=== PATIENT | female | born 1965 | race Caucasian/White ===

== ENCOUNTER 2020-09-29 10:51 | Emergency (ER) | payer OTHER, SELFPAY ==
[2020-09-29 10:59] VITALS: BP 149/86; PULSE 65; RESP 16; TEMP 36.9; O2SAT 99
--- NOTE | 2020-09-29 11:25 | ED.HEATRA ---
HPI - Head Injury General Chief complaint: Trauma Stated complaint: RIGHTSIDE PAIN History of Present Illness HPI Narrative: This is a 55 year old female that comes in due to a syncopal episode yesterday and she does not remember passing out from a bar stool all she remember waking up on the floor from an chair she got up and went to bed. Patient states she has hypertension but no diabetes a pack a day smoker. What brought her in was she is having chest pain on the right side that radiates to her back. Patient states she has some shortness of breath and the chest pain continues to get worse. Right sided parietal pain from her fall yesterday no brusing noted. Related Data Home Medications Medication Instructions Recorded Confirmed albuterol sulfate INHALATION 09/29/20 bupropion HCl mg PO 09/29/20 nebivolol [Bystolic] mg 09/29/20 [id number] tablet PO 09/29/20 Allergies Allergy/AdvReac Type Severity Reaction Status Date / Time No Known Allergies Allergy Unverified 03/31/18 11:52 Review of Systems Review of Systems: Narrative: CONSTITUTIONAL: Denies fever, chills, or sweats. EYES: Denies visual changes, redness, or discharge. ENT: Denies rhinorrhea, congestion, sore throat, or otalgia. CARDIOVASCULAR:Reports chest pain, palpitations, or edema. RESPIRATORY: Denies cough or dyspnea. GASTROINTESTINAL: Denies abdominal pain, nausea, vomiting, or diarrhea. GENITOURINARY: Denies dysuria or hematuria. SKIN:[Denies rash or itching. MUSCULOSKELETAL:Denies back pain, joint pain, or myalgia. Reports right sided parietal pain NEUROLOGIC: Denies headache, numbness, or weakness. PSYCHIATRIC:Denies anxiety or depression PMFSH Comments At time as signature, I have reviewed and agree with nursing past medical, social, surgical and family history. Please see nursing chart for further information. There is no relevant family history pertinent to the presenting complaint. Exam Narrative: Exam Narrative: GENERAL:Well-appearing, well-nourished, and in no acute distress. HEAD:Normocephalic, atraumatic. EYES: PERRLA and EOMI. ENT: Nares clear, no rhinorrhea or epistaxis. Mucous membranes moist. NECK: Supple. CHEST: Clear to auscultation. No respiratory distress. right sided chest pain that goes to her back HEART: Regular rate and rhythm. normal peripheral pulses. ABDOMEN: Soft, nontender, nondistended, normal active bowel sounds. EXTREMITIES: Normal range of motion. No edema. Pariatel pain from fall yesterday. SKIN: Warm, dry, no rash. NEURO: No focal deficits. Alert and oriented x3. Course Vital Signs Vital signs: Vital Signs Temperature 98.5 F 09/29/20 10:59 Pulse Rate 65 09/29/20 10:59 Respiratory Rate 16 09/29/20 10:59 Blood Pressure 149/86 H 09/29/20 10:59 Pulse Oximetry 99 09/29/20 10:59 Temperature 98.5 F 09/29/20 10:59 Pulse Rate 65 09/29/20 10:59 Respiratory Rate 16 09/29/20 10:59 Blood Pressure 149/86 H 09/29/20 10:59 Pulse Oximetry 99 09/29/20 10:59 Discharge Plan Discharge Clinical Impression: Syncope and collapse Chest pain Qualifiers: Chest pain type: chest pain on breathing Qualified Code(s): R07.1 - Chest pain on breathing Patient Disposition: Acute Care Hospital Condition: Stable Instructions: Chest Pain (ED), Syncope (ED), Chest Wall Pain (ED) Additional Instructions: Transferred to [facility] spoke with Dr. Carballo. Patient picked her up for transfer pateint refused and signed AMA paperwork for Ambulance transfer. Explained risk and benefits EKG completed and Faxed to [facility] ED faxed to [phone] is the number that was given to me for fax of EKG. No ST elevation identified on EKG from this provider. Prescriptions: No Action albuterol sulfate 90 mcg/actuation HFA aerosol inhaler INHALATION RF: 0 bupropion HCl 300 mg tablet extended release 24 hr PO RF: 0 Bystolic 10 mg
--- NOTE | 2020-09-29 11:27 | ECG_ITS ---
Measurements Intervals [place] Rate: 67 P: 55 PA: 168 QRS: 55 QRSD: 101 T: 10 QT: 402 QTc: 427 Interpretive Statements SINUS RHYTHM INCOMPLETE RIGHT BUNDLE BRANCH BLOCK BASELINE ARTIFACT- I, II, III, AVR, AVL, AVF BORDERLINE ECG Electronically Signed On 09-29-2020 11:43:14 CDT by Jayant Serna D.O.
--- NOTE | 2020-09-29 11:49 | PC.NURSE ---
ekg faxed to [facility] at [phone]
--- NOTE | 2020-09-29 14:25 | PC.NURSE ---
chart faxed to em[facility] [phone]
== END 2020-09-29 11:52 | disposition short-term general hospital (02) ==
PROVIDERS: Emergency Provider Nurse Practitioner Family; PCP Physician Assistant
DX: R55 Syncope and collapse (principal); R07.1 Chest pain on breathing; I10 Essential (primary) hypertension
CPT/HCPCS: 93005; 99213; G0463

== ENCOUNTER → 2020-10-05 11:45 | Outpatient (CLI) | payer OTHER, SELFPAY ==
--- NOTE | ~2020-10-05 | XR_ITS ---
EXAMINATION: XR foot RT min 3V DATE: 10/05/2020 12:03 INDICATION: Right first toe pain, injury one month ago, initial encounter TECHNIQUE: Dorsoplantar, lateral, and 2 oblique views of the right foot were obtained. COMPARISON: None. FINDINGS: There is a comminuted, traumatic, closed fracture involving the first proximal phalanx whic h extends to the interphalangeal joint. Soft tissue swelling surrounds the fracture. There appears to be a small amount of calcified callus formation at the fracture site. No additional acute osseous fi ndings are evident. 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 Posterior and pl fabrice calcaneal enthesophytes are noted. IMPRESSION: 1. Comminuted fracture of the first proximal phalanx extending to the interphalangeal joint with some evidence of periosteal reaction. Reviewed, dictated and finalized at location A. IMPRESSION: 1. Comminuted fracture of the first proximal phalanx extending to the interphal angeal joint with some evidence of periosteal reaction.
== END ==
PROVIDERS: PCP Physician Assistant; Visit Provider Physician Assistant
DX: S92.911A Unspecified fracture of right toe(s), initial encounter for closed fracture (principal)
CPT/HCPCS: 73630

== ENCOUNTER 2025-01-07 09:47 | Outpatient (CLI) | payer OTHER, SELFPAY ==
--- NOTE | ~2025-01-07 | US_ITS ---
EXAMINATION: US retroperitoneal duplex ltd, 01/07/2025 9:50 CDT HISTORY: HTN Comparison: None Technique: Perdomo-scale sonographic images were obtained Findings: The renal cortices are intact with no solid masses, cysts or calculi. Right kidney 10.9 x 4.7 x 3.9 cm. Left kidney 11.3 x 5.6 x 5.7 cm Aortic flow velocity 44.6 cm/s Right; proximal 21, May T12, distal 29 cm/s. Renal aortic ratio 0.7 Left proximal 18.6, mid 16.5, distal 72 cm/s, renal aortic ratio is 0.7. IMPRESSION: No evidence of renal artery stenosis. If there remains clinical suspicion contrast-enhanced CTA or MRA recommended Reviewed, dictated and finalized at location P. IMPRESSION: No evidence of renal artery stenosis. If there remains clinical jacque picion contrast-enhanced CTA or MRA recommended
== END 2025-01-07 09:48 | disposition home or self-care (01) ==
LOC: MICIMG 09:48
PROVIDERS: PCP Physician Assistant; Visit Provider Physician Assistant
DX: I10 Essential (primary) hypertension (principal)
CPT/HCPCS: 93976